=== PATIENT | female | born 1935 | race Asian ===

== ENCOUNTER 2016-08-10 15:10 | Inpatient (IN) | payer OTHER, MEDICAID ==
[~2016-08-10] VITALS: Ht 157.5 cm; Wt 55.5 kg
[~2016-08-10 15:10] MED LIST: ALBU2TAB4 PO; ALLO100T PO; LISI-646 PO; METF-312 PO
[2016-08-10 15:43] LABS: Basophils # (auto) 0 uL; Basophils % (auto) 0.1 % (0.0-2.0); Eosinophils # (auto) 0.1 uL; Eosinophils % (auto) 0.7 % (0.0-7.0); Hematocrit 37.2 % (36.0-46.0); Hemoglobin 11.9 g/dL (12.2-16.2); Lymphocytes # (auto) 1.2 uL; Lymphocytes % (auto) 16.2 % (10.0-50.0); Mean Corpuscular Hemoglobin 30.3 pg (28.0-32.0); Mean Corpuscular Hgb Conc. 32.1 g/dL (32.0-36.0); Mean Corpuscular Volume 94.5 fL (80.0-100.0); Mean Platelet Volume 8.1 fL (7.4-10.4); Monocytes # (auto) 0.6 uL; Monocytes % (auto) 8.1 % (0.0-12.0); Neutrophils # (auto) 5.3 uL; Neutrophils % (auto) 74.9 % (37.0-80.0); Platelet Count (auto) 304 10^3/uL (140-450); Red Cell Distribution Width 18.2 % (11.6-16.0); White Blood Cell 7.1 10^3/uL (4.4-10.8)
[2016-08-10] MEDS ORDERED: SODIUM CHLORIDE 0.9% 250 ML IV ONE (16:18)
[2016-08-10 16:21] LABS: Albumin 3.1 g/dL (3.4-5.0); BUN/Creatinine Ratio 20.5; Magnesium 2.1 mg/dL (1.6-2.6); Potassium 3.9 mmol/L (3.5-5.1)
[2016-08-10 16:26] LABS: Bilirubin, Total 0.4 mg/dL (0.2-1.0); Total Protein 6.2 g/dL (6.4-8.2)
[2016-08-10] MEDS ORDERED: ONDANSETRON HCL 4 MG/2 ML VIAL IV ONE (17:45)
[2016-08-10] MEDS ORDERED: NALBUPHINE HCL 10 MG/1ml INJECTION IV ONE (17:45)
[2016-08-10 18:40] LABS: Urine RBC None Seen /hpf (0 - 4)
[2016-08-10 19:16] LABS: Urine Bilirubin Negative (Negative); Urine Blood Negative /uL (Negative); Urine Color Yellow (Yellow); Urine Glucose Normal (Normal); Urine Ketone Negative (Negative); Urine Nitrite Negative (Negative); Urine Squamous Epithelial Cell FEW /hpf (<5); Urine Urobilinogen Normal (Negative); Urine pH 6.5 (5.0-8.0)
[2016-08-10] MEDS ORDERED: TEMAZEPAM 15 MG CAP PO PRN (19:45)
[2016-08-10] MEDS ORDERED: DOCUSATE SOD 100 MG CAP PO PRN (19:45)
[2016-08-10] MEDS ORDERED: ONDANSETRON HCL 4 MG/2 ML VIAL IV PRN (19:45)
[2016-08-10] MEDS ORDERED: MORPHINE SULF INJ 2 MG/ML SYRINGE 1ML IV PRN (19:45)
[2016-08-10] MEDS ORDERED: HYDROcodone-ACET 5/325MG TAB PO PRN (19:45)
[2016-08-10 22:00] VITALS: BP 129/79
[2016-08-10 22:55] VITALS: BP 129/79
[2016-08-11] MEDS: ACETAMINOPHEN 325 MG TAB PO PRN ×4 (01:45→20:59)
[2016-08-11] MEDS: SODIUM CHLOR 0.9% PF (SALINE LOCK) 10ML VIAL IV SCH ×4 (02:24→22:38)
[2016-08-11 05:47] LABS: Basophils # (auto) 0 uL; Basophils % (auto) 0.1 % (0.0-2.0); Eosinophils # (auto) 0 uL; Hematocrit 36.3 % (36.0-46.0); Hemoglobin 11.6 g/dL (12.2-16.2); Lymphocytes # (auto) 1.1 uL; Lymphocytes % (auto) 20.1 % (10.0-50.0); Mean Corpuscular Hemoglobin 30.3 pg (28.0-32.0); Mean Corpuscular Hgb Conc. 31.8 g/dL (32.0-36.0); Mean Corpuscular Volume 95.2 fL (80.0-100.0); Mean Platelet Volume 8.5 fL (7.4-10.4); Monocytes # (auto) 0.3 uL; Monocytes % (auto) 4.8 % (0.0-12.0); Neutrophils # (auto) 4.1 uL; Platelet Count (auto) 287 10^3/uL (140-450); SUSPECT VIEW TRANSMISSION; White Blood Cell 5.5 10^3/uL (4.4-10.8)
[2016-08-11 06:28] LABS: Albumin 2.8 g/dL (3.4-5.0); BUN/Creatinine Ratio 18.7; Bilirubin, Total 0.3 mg/dL (0.2-1.0); Calcium 7.8 mg/dL (8.5-10.1); Potassium 4.8 mmol/L (3.5-5.1)
[2016-08-11] MEDS: BOOST PLUS 8 ounce PO SCH ×3 (09:07→18:17)
[2016-08-11 09:29] VITALS: BP 110/55
[2016-08-11] MEDS: MULTIPLE VITAMIN TAB PO SCH (09:56)
[2016-08-11 13:01] VITALS: BP 160/75
[2016-08-11 17:26] VITALS: BP 167/98
[2016-08-11] MEDS: cloNIDine HCL 0.1 MG TAB PO PRN (19:28)
[2016-08-11 22:00] VITALS: BP 159/87
[2016-08-12 04:57] VITALS: BP 145/80
[2016-08-12] MEDS: ACETAMINOPHEN 325 MG TAB PO PRN ×3 (05:59→14:36)
[2016-08-12] MEDS: SODIUM CHLOR 0.9% PF (SALINE LOCK) 10ML VIAL IV SCH ×2 (06:00→14:13)
[2016-08-12] MEDS: BOOST PLUS 8 ounce PO SCH ×3 (08:00→18:26)
[2016-08-12 09:00] VITALS: BP 152/88
[2016-08-12] MEDS: MULTIPLE VITAMIN TAB PO SCH (09:51)
[2016-08-12 13:00] VITALS: BP 160/85
[2016-08-12] MEDS: cloNIDine HCL 0.1 MG TAB PO PRN ×2 (14:37→18:26)
[2016-08-12 15:43] VITALS: BP 156/85
[2016-08-12 17:29] VITALS: BP 164/84
== END 2016-08-12 18:45 | DRG 605 ==
LOC: EDBD 15:10 → ER 15:25 → EDUNIT# 15:26 → TELE 15:26 → EAST 22:00
PROVIDERS: ADMIT Internal Medicine; ATTEND Internal Medicine
DX: S70.02XA Contusion of left hip, initial encounter (principal); E44.0 Moderate protein-calorie malnutrition; G89.29 Other chronic pain; N18.3 Chronic kidney disease, stage 3 (moderate); J45.909 Unspecified asthma, uncomplicated; R26.81 Unsteadiness on feet; E83.51 Hypocalcemia; R29.6 Repeated falls; W01.0XXA Fall on same level from slipping, tripping and stumbling without subsequent striking against object, initial encounter; I12.9 Hypertensive chronic kidney disease with stage 1 through stage 4 chronic kidney disease, or unspecified chronic kidney disease; M19.90 Unspecified osteoarthritis, unspecified site; M54.42 Lumbago with sciatica, left side; Z68.22 Body mass index [BMI] 22.0-22.9, adult; Z91.81 History of falling; Y93.89 Activity, other specified; Y92.098 Other place in other non-institutional residence as the place of occurrence of the external cause; Y99.8 Other external cause status
CPT/HCPCS: 36415; 70450; 71020; 72192; 73502; 80053; 81001; 83735; 84443; 84484; 85025; 94761; 96361; 96374; 96375; J2405

== ENCOUNTER 2016-09-21 14:03 | Emergency (ER) | payer MEDICARE, MEDICAID ==
[~2016-09-21] VITALS: Ht 160 cm; Wt 56.7 kg
[~2016-09-21 14:03] MED LIST changes: -METF-312 PO; +METF-370 PO
[2016-09-21] MEDS ORDERED: ONDANSETRON ODT 4 MG TAB PO ONE (17:00)
[2016-09-21] MEDS ORDERED: KETOROLAC TROMETH 60MG/2ML VIAL IM ONE (17:00)
[2016-09-21] MEDS ORDERED: traMADol HCL 50 MG TAB PO ONE (17:00)
[2016-09-21] MEDS ORDERED: ONDANSETRON HCL 4 MG/2 ML VIAL IM ONE (17:00)
[2016-09-21 17:27] VITALS: BP 132/87
== END 2016-09-21 17:27 | disposition home or self-care (01) ==
LOC: ER 14:03
DX: S16.1XXA Strain of muscle, fascia and tendon at neck level, initial encounter (principal); I10 Essential (primary) hypertension; J45.909 Unspecified asthma, uncomplicated; V49.59XA Passenger injured in collision with other motor vehicles in traffic accident, initial encounter; Y93.89 Activity, other specified; Y99.8 Other external cause status; Y92.89 Other specified places as the place of occurrence of the external cause
CPT/HCPCS: 93005; 99283; Q0162